=== PATIENT | male | born 1975 | race Two or more races ===

== ENCOUNTER 2019-07-02 12:01 | Emergency (ER) | payer SELFPAY ==
[~2019-07-02] VITALS: Ht 172.7 cm; Wt 79.4 kg
[~2019-07-02 12:01] MED LIST: ONDANSETRON ODT4 MG BC
[2019-07-02 12:30] VITALS: BP 118/83
--- NOTE | 2019-07-02 12:30 | NUR ---
ED Nurse Note: Patient came to ED from home c/o 12/06 aching medial abdominal pain since Tuesday. Patient has hx of diverticulitis. States he has had intermittent n/v and diarrhea along with a cough. Patient AxO x 4, resting in bed. No s/s of acute distress.
[2019-07-02] MEDS ORDERED: Ketorolac 60mg Inj IM ONE (13:30)
[2019-07-02] MEDS ORDERED: ZOFRAN ODT8 MG ORAL (13:38)
[2019-07-02 14:03] VITALS: BP 120/80
--- NOTE | 2019-07-02 14:03 | NUR ---
ER DISCHARGE NOTE: Patient cleared for DC by Dr. Suarez. Patient AxO x 4, no s/s of acute distress. VSS. Patient verbalized understanding of DC instructions. ID band removed, patient walks with steady gait, all belongings with patient.
--- NOTE | 2019-07-02 14:44 | Emergency Room Report ---
History of Present Illness General Chief Complaint: Abdominal Pain Source: Patient Present Illness HPI Patient presents with complaints of mid abdominal pain reports that he was told that his CAT scan showed something abnormal recently And Was trying to follow-up with primary physician for ultrasound however not able to get a hold of the primary physician and therefore returns to the ER he does now report that he feels there is increased vomiting and diarrhea Patient is also developed a headache since yesterday Allergies: Coded Allergies: No Known Allergies (Unverified , 06/21/19) Patient History Past Medical History: see triage record Reviewed Nursing Documentation: PMH: Agreed; PSxH: Agreed Nursing Documentation-PMH Past Medical History: No History, Except For Hx Hypertension: No Hx Pacemaker: No Hx Asthma: No Hx COPD: No Hx Diabetes: No Hx Cancer: No Hx Gastrointestinal Problems: No Hx Dialysis: No Hx Neurological Problems: No Hx Cerebrovascular Accident: No Hx Seizures: No Review of Systems All Other Systems: negative except mentioned in HPI Physical Exam Vital Signs Date Time Temp Pulse Resp B/P (MAP) Pulse Ox O2 Delivery O2 Flow Rate FiO2 07/02/19 12:14 97.9 82 16 118/83 (95) 97 Room Air Sp02 EP Interpretation: reviewed, normal General Appearance: well appearing, no apparent distress Head: normocephalic, atraumatic Eyes: bilateral eye PERRL, bilateral eye EOMI ENT: hearing grossly normal, normal pharynx, TMs + canals normal, uvula midline Neck: full range of motion, supple, no meningismus, no bony tend Respiratory: lungs clear, normal breath sounds, no rhonchi, no respiratory distress, no retraction, no accessory muscle use Cardiovascular #1: normal peripheral pulses, regular rate, rhythm, no edema, no gallop, no JVD, no murmur Gastrointestinal: normal bowel sounds, non tender, soft, no mass, no organomegaly, non-distended, no guarding, no hernia, no pulsatile mass, no rebound Genitourinary: no CVA tenderness Musculoskeletal: normal inspection Neurologic: motor strength/tone normal, motor power connector III-XII nml as tested, oriented x3 , sensory intact, responsive Psychiatric: mood/affect normal Skin: no rash Lymphatic: normal inspection, no adenopathy Medical Decision Making Diagnostic Impression: Primary Impression: Nausea, vomiting, and diarrhea Additional Impressions: abdominal pain Liver lesion ER Course With the history exam and presentation, multiple differentials considered, including but not limited to appendicitis, gastritis, cholecystitis, diverticulitis Patient has a fairly benign medical evaluation soft abdomen does not appear septic or toxic Previous medical records were reviewed and patient does show some findings on previous imaging it was discussed with him that this does not Require emergent imaging such as ultrasound and can be obtained as an outpatient process Patient's abdomen remains soft Given the patient's vomiting and diarrhea question some viral pathology I did not feel patient required repeat of the significant previous work-up and will have initial conservative outpatient trial Last Vital Signs Date Time Temp Pulse Resp B/P (MAP) Pulse Ox O2 Delivery O2 Flow Rate FiO2 07/02/19 14:03 98.0 79 17 120/80 100 Room Air Status: improved Disposition: HOME, SELF-CARE Condition: Improved Scripts Ondansetron Odt* (ZOFRAN ODT*) 8 Mg Tab.rapdis 4 MG ORAL Q12HR PRN for Nausea & Vomiting, #10 TAB Prov: Amando Suarez DO 07/02/19 Referrals: [facility] Patient Instructions: Nausea and Vomiting, Adult, [id number], Abdominal Pain , Adult, General Headache Without Cause, [id number], Diarrhea, Adult, Easy-to- Read Additional Instructions: The CAT scan that was done recently shows some abnormalities. This does not require any further emergent evaluation with ultrasonography please follow-up with your primary physician for further outpatient follow-up Patient is provided with the discharge instructions notified to follow up with primary doctor in the next 2-3 days otherwise return to the er with any worsening symptoms. Please note that this report is being documented using [employer] technology. This can lead to erroneous entry secondary to incorrect interpretation by the dictating instrument. Amando Suarez DO Jul 02, 2019 14:44
== END 2019-07-02 14:03 | disposition home or self-care (01) ==
LOC: EMR 14:00
DX: R10.9 Unspecified abdominal pain (principal); R11.2 Nausea with vomiting, unspecified; R19.7 Diarrhea, unspecified; K76.9 Liver disease, unspecified; R51 Headache
CPT/HCPCS: 96372; 99283